=== PATIENT | female | born 1975 | race Caucasian/White ===

== ENCOUNTER → 2017-01-06 | Outpatient (CLI) | payer BC ==
[2017-01-06 10:49] LABS: BASOPHILS # (AUTO) 0.02 10*3/UL; BASOPHILS % (AUTO) 0.3 % (0-1); EOSINOPHILS % (AUTO) 2.9 % (0-8); HEMATOCRIT 43.7 % (37.0-47.0); HEMOGLOBIN 14.8 g/dL (12.0-16.0); IMM GRAN % (AUTO) 0.3 % (0-5); IMM GRAN# (AUTO) 0.02 10*3/UL; LYMPHOCYTES # (AUTO) 1.17 10*3/uL; LYMPHOCYTES % (AUTO) 17.9 % (10-50); MEAN CORPUSCULAR HEMOGLOBIN 32.5 PG (27-31); MEAN CORPUSCULAR HGB CONC 33.9 g/dL (33-37); MEAN PLATELET VOLUME 9.8 FL (7.4-12.2); MONOCYTES # (AUTO) 0.46 10*3/UL (0.3-0.8); NEUTROPHILS # (AUTO) 4.69 10*3/UL; NEUTROPHILS % (AUTO) 71.6 % (50-80); RDW COEFFICIENT OF VARIATION 12.1 % (11.5-14.5); RED BLOOD COUNT 4.56 10^6/uL (4.20-5.40); WHITE BLOOD COUNT 6.55 10^3/uL (4.8-10.8)
[2017-01-06 11:03] LABS: PLATELET MORPHOLOGY COMMENT NORMAL MORPHOLOGY (NORM)
[2017-01-06 11:05] LABS: PRENATAL QUESTION YES (Y)
[2017-01-06 11:42] LABS: HIV ANTIBODY NEGATIVE (N); HIV-1 P24 ANTIGEN NEGATIVE (N)
[2017-01-07 14:37] LABS: HEP B SURFACE AG Negative (Negative); RUBELLA IGG INDEX 1.8 (()); SYPHILIS IGG WITH REFLEX Negative (Negative)
== END ==
LOC: MOB LAB 09:57
PROVIDERS: ATTEND Family Medicine
DX: Z36 Encounter for antenatal screening of mother (principal)
CPT/HCPCS: 36415; 80081; 86900; 86901; 87088

== ENCOUNTER → 2017-01-08 | Outpatient (CLI) | payer BC ==
--- NOTE | 2017-01-08 16:33 | DI ---
US OB LESS THAN 14 WEEKS, US OB TRANSVAGINAL,01/08/2017 2:48 PM: Clinical History: Established gestational age. Previous Exam: None at this facility. Findings: Multiple transabdominal and transvaginal grayscale and color Doppler sonographic images are obtained through the pelvis, and demonstrate a gestational sac within the uterus. There is a single pole measuring 3 mm from crown to around, and corresponds with an estimated g estational age of 6 weeks zero days. Visualized portions of the placenta are unremarkable. There are no detectable Doppler heart tones. There is a trace amount of fluid within the cervix. Impression: No pole without detectable Doppler heart tones. This could be secondary to demise or to extreme ly early gestational age. Recommend followup with serial hCG levels.
== END ==
LOC: US 14:37
PROVIDERS: ATTEND Family Medicine
DX: Z36 Encounter for antenatal screening of mother (principal)
CPT/HCPCS: 36415; 76801; 76817; 84702

== ENCOUNTER → 2017-01-10 | Outpatient (CLI) | payer BC | LOC: LAB 13:01 | PROVIDERS: ATTEND Family Medicine | DX: N91.2 Amenorrhea, unspecified (principal); Z32.01 Encounter for pregnancy test, result positive | CPT/HCPCS: 36415; 84702 ==

== ENCOUNTER → 2017-01-17 | Outpatient (CLI) | payer BC | LOC: LAB 15:21 | PROVIDERS: ATTEND Family Medicine | DX: O03.9 Complete or unspecified spontaneous abortion without complication (principal) | CPT/HCPCS: 36415; 84702 ==

== ENCOUNTER → 2017-02-03 | Outpatient (CLI) | payer BC ==
[2017-02-03 10:48] LABS: BILIRUBIN,URINE NEGATIVE (NEG); CLARITY,URINE CLEAR (CLEAR); GLUCOSE, URINE (UA) NEGATIVE (NEG); LEUKOCYTE ESTERASE ,URINE NEGATIVE (NEG); NITRATE,URINE NEGATIVE (NEG); OCCULT BLOOD,URINE Trace-lysed (NEG); PROTEIN,URINE NEGATIVE (NEG); UROBILINOGEN,URINE 0.2 mg/dL (0.2)
[2017-02-03 11:03] LABS: URINE SAMPLE TYPE VOIDED SPECIMEN
[2017-02-03 11:04] LABS: SQUAMOUS EPITHELIAL CELL,UR RARE
== END ==
LOC: MOB LAB 09:38
PROVIDERS: ATTEND Family Medicine
DX: O03.9 Complete or unspecified spontaneous abortion without complication (principal); R30.0 Dysuria
CPT/HCPCS: 36415; 81001; 84702

== ENCOUNTER → 2017-02-06 | Outpatient (CLI) | payer BC ==
--- NOTE | 2017-02-06 10:02 | DI ---
PELVIC ULTRASOUND, 02/06/2017 7:54 AM Clinical History: Retained placenta/products of conception. The patient had a recent miscarriage on . Previous Exam: None at this facility. Technique: Transabdominal and transvaginal scans are performed. The uterus measures 40 x 55 x 90 mm. The central uterine stripe is thickened and measures 20 mm. With the transvaginal probe, the uterine cavity in the fundal region is inhomogeneous in texture. There a re areas were the tissues markedly hypoechoic and there are areas where there is intermediate echogen icity. Some of this material may represent clotted blood, but solid material such as retained product s of conception cannot be excluded. In the anterior wall of the body of the uterus is a 15 mm inhomog eneous and hypoechoic lesion consistent with a small fibroid. The right ovary has a 20-25 mm cyst and there are 2 small cysts in the range of 10 mm in the left ovary. Both adnexal regions are normal. Th ere are no fluid collections or masses. Readin. The endometrial stripe of the uterus is thickened and measures 20 mm. Within the uterine cavity i n the fundal region, there are areas of increased and decreased echogenicity. Some of this may repres ent blood clots, but retained products of conception cannot entirely be excluded. 2. There is a small hypoechoic 15 mm lesion in the anterior wall of the uterus consistent with a fib roid. There are small cysts of both ovaries. The ovaries are otherwise unremarkable.
== END ==
LOC: US 07:45
PROVIDERS: ATTEND Nurse Practitioner Family
DX: O73.0 Retained placenta without hemorrhage (principal)
CPT/HCPCS: 76830; 76856

== ENCOUNTER → 2017-02-27 | Outpatient (CLI) | payer BC | LOC: LAB 06:59 | PROVIDERS: ATTEND Family Medicine | DX: O03.9 Complete or unspecified spontaneous abortion without complication (principal) | CPT/HCPCS: 36415; 84702 ==

== ENCOUNTER → 2017-07-09 | Outpatient (CLI) | payer BC | LOC: LAB 14:49 | PROVIDERS: ATTEND Family Medicine | DX: N91.2 Amenorrhea, unspecified (principal); Z87.59 Personal history of other complications of pregnancy, childbirth and the puerperium | CPT/HCPCS: 36415; 84702 ==

== ENCOUNTER → 2017-07-11 | Outpatient (CLI) | payer BC | LOC: LAB 12:16 | PROVIDERS: ATTEND Family Medicine | DX: N91.2 Amenorrhea, unspecified (principal) | CPT/HCPCS: 36415; 84702 ==

== ENCOUNTER → 2017-07-18 | Outpatient (CLI) | payer BC | LOC: LAB 11:20 | PROVIDERS: ATTEND Family Medicine | DX: Z87.59 Personal history of other complications of pregnancy, childbirth and the puerperium (principal) | CPT/HCPCS: 36415; 84702 ==

== ENCOUNTER 2018-03-17 10:52 | Inpatient (IN) ==
[2018-03-17 11:55] LABS: Hemoglobin [HGB] 13.2 g/dL (12.0-16.0); MEAN CORPUSCULAR HEMOGLOBIN 32.3 PG (27-31); MEAN CORPUSCULAR HGB CONC 33.8 g/dL (33-37); MEAN CORPUSCULAR VOLUME 95.4 FL (81-99); MEAN PLATELET VOLUME 10.5 FL (7.4-12.2); RED BLOOD COUNT 4.09 10^6/uL (4.20-5.40)
[2018-03-17] MEDS ORDERED: Oxytocin 20 Units + LR 20 UNIT/1,000 ML BAG IV SCH ×2 (12:00→15:33)
[2018-03-17] MEDS ORDERED: Metoclopramide Inj 10 MG/2 ML VIAL IV ONE (12:00)
[2018-03-17] MEDS ORDERED: Lactated Ringers 1,000 ML PRIMARY IV SCH (12:00)
[2018-03-17] MEDS ORDERED: CefOXitin Inj 2 GM in Sodium Chloride 0.9% 100 ML IV ONE (12:00)
[2018-03-17] MEDS ORDERED: NORMAL SALINE 10 ML SYRINGE FLUSH IVP PRN (12:00)
[2018-03-17] MEDS ORDERED: LIDOCAINE W/ SODIUM BICARB 0.5 ML SYR SUBD PRN (12:00)
[2018-03-17] MEDS ORDERED: CITRIC ACID/SODIUM CITRATE 30 ML CUP PO ONE (12:00)
[2018-03-17] MEDS ORDERED: Famotidine Inj 20 MG in Normal Saline Flush 10 ML IVP ONE (12:00)
[2018-03-17] MEDS ORDERED: Lactated Ringers 1,000 ML PRIMARY IV ONE ×3 (12:00→13:20)
[2018-03-17] MEDS ORDERED: LIDOCAINE HCL 2 % 10 ML JELLY URO-JECT TOPICAL PRN (12:00)
[2018-03-17] MEDS ORDERED: ePHEDrine Inj 50 MG/ML AMP ONE (12:42)
[2018-03-17] MEDS ORDERED: OXYTOCIN 10 UNIT/1 ML ONE ×2 (12:42→13:58)
[2018-03-17] MEDS ORDERED: Sodium Chloride 0.9% vial 10 ML ONE (13:16)
[2018-03-17] MEDS ORDERED: PHENYLEPHRINE 10,000 MCG/1 ML VIAL ONE (13:16)
[2018-03-17] MEDS ORDERED: METHYLERGONOVINE MALEATE 0.2 MG/1 ML VIAL IM ONE ×2 (13:33→15:33)
[2018-03-17] MEDS ORDERED: Misoprostol Tab 100 MCG TAB ONE (13:42)
[2018-03-17] MEDS ORDERED: Lactated Ringers 2,000 ML PRIMARY IV ONE (13:57)
[2018-03-17] MEDS ORDERED: Misoprostol Tab 100 MCG TAB RECTAL ONE (14:49)
[2018-03-17] MEDS ORDERED: HYDROmorphone 2 MG/1 ML IV PRN (15:33)
[2018-03-17] MEDS ORDERED: LANOLIN HPA 40 GM TUBE TOPICAL PRN (15:33)
[2018-03-17] MEDS ORDERED: DIPH,PERTUSS,TET(ADACEL) VAC/PF 0.5 ML (Tdap) IM ONE (15:33)
[2018-03-17] MEDS ORDERED: Naloxone Inj 0.01 MG, Sodium Chloride 0.9% vial 1 ML IVP PRN ×2 (15:33)
[2018-03-17] MEDS ORDERED: CALCIUM CARBONATE 500 MG (TUMS) CHEWABLE TABLET PO PRN (15:33)
[2018-03-17] MEDS ORDERED: MISOPROSTOL 200 MCG TABLET RECTAL ONE (15:33)
[2018-03-17] MEDS ORDERED: ONDANSETRON 4 MG/2 ML VIAL IVP PRN (15:33)
[2018-03-17] MEDS ORDERED: diphenhydrAMINE 50 MG/1 ML VIAL IV PRN (15:33)
[2018-03-17] MEDS ORDERED: diphenhydrAMINE 25 MG CAPSULE PO PRN (15:33)
[2018-03-17] MEDS ORDERED: Famotidine Inj 20 MG in Normal Saline Flush 10 ML IVP PRN (15:33)
[2018-03-17] MEDS ORDERED: Nalbuphine Inj 20 MG/ML Ampule IVP PRN (15:33)
--- NOTE | 2018-03-17 15:34 | CRNA.PROGR ---
Anesthesia Recovery Phase I - Post Anesthesia Evaluation Patient's Condition on Arrival in Phase I: Stable Pain Level: 0
--- NOTE | 2018-03-17 15:36 | CRNA.PROCE ---
Central Neuraxis Block Placemt - - Safety Measures: Time Out Taken, Site Verified - - Type of Block: Subarachnoid Reason for Block: Surgical Moniters Used During Block: EKG, SPO2, NIBP Positioning: Sitting Skin Prep Used: Betadine Draped: Yes Skin Infiltration - Enter Amount Used in Comment Field: 1% Xylocaine (mL): Yes ( wheal) Introducer User: 18 Gauge Keenan Local Anesthetic - Enter Amount Used in Comment Field: 5.0 % Xylocaine with Dextrose (ml): Yes (5ml test neg) Number of Centimeters Catheter Threaded: 4 Bioclusive Dressing Applied: Yes Anesthesia Time - Other Weight: 121.109 kg Height: 5 ft 6 in Body Mass Index (BMI): 43.0
--- NOTE | 2018-03-17 15:37 | CRNA.PROGR ---
Anesthesia Time - - Start date: 03/17/18 End date: 03/17/18 - Procedure/Recovery Time Anesthesia : Time In: 13:04 Anesthesia : Time Out: 14:43 Anesthesia : Total Time: 99 - Total Anesthesia Time Total Anesthesia Time (minutes): 99 - Other Weight: 121.109 kg Height: 5 ft 6 in Body Mass Index (BMI): 43.0 Physical Status: P2 Anesthesia Type: Spinal Block Obstetrics: C/S anesthesia only
--- NOTE | 2018-03-17 15:40 | CRNA.PROGR ---
Anesthesia Note - Progress Notes Anesthesia Progress Note: Addendum to SAB block note. Typo noted. Correction. Lidocaine 5% not given. SAB was 15mg 0.75% Marcaine with dex.
[2018-03-17] MEDS: KETOROLAC 15 MG/1 ML VIAL IVP SCH ×2 (16:45→22:52)
[2018-03-17] MEDS: oxyCODONE-ACETAMINOPHEN 5-325 TAB PO PRN ×2 (16:49→21:05)
[2018-03-17] MEDS: D5-LR 1,000 ML PRIMARY IV SCH (17:15)
[2018-03-18] MEDS: oxyCODONE-ACETAMINOPHEN 5-325 TAB PO PRN ×5 (01:44→19:43)
[2018-03-18 05:39] LABS: Hematocrit [HCT] 32.6 % (37.0-47.0); Hemoglobin [HGB] 10.5 g/dL (12.0-16.0); MEAN CORPUSCULAR HEMOGLOBIN 31.4 PG (27-31); MEAN CORPUSCULAR HGB CONC 32.2 g/dL (33-37); MEAN CORPUSCULAR VOLUME 97.6 FL (81-99); MEAN PLATELET VOLUME 10.3 FL (7.4-12.2); RED BLOOD COUNT 3.34 10^6/uL (4.20-5.40)
[2018-03-18] MEDS: D5-LR 1,000 ML PRIMARY IV SCH (06:56)
[2018-03-18] MEDS: KETOROLAC 15 MG/1 ML VIAL IVP SCH ×3 (07:29→19:44)
[2018-03-18] MEDS: NORMAL SALINE 10 ML SYRINGE FLUSH IVP PRN ×3 (07:29→19:44)
--- NOTE | 2018-03-18 08:56 | OB.OP.NOTE ---
Operative Report - - Surgeon: Jesse Steve MD Architectural Draftsman: Niall Blackwell MD Anesthesia Type: Regional Anesthesia Provider: Lopez Almanza CRNA Surgery Date: 03/17/18 Preoperative Diagnosis: Primary section, advanced maternal age Postoperative Diagnosis: same, delivered. Procedure: Primary section Complications: none Estimated Blood Loss (mL): 1,000 Urine Output (mL): 250 Fluids: 1500 cc LR Indications: Pt is a 42 yo G2 now P1 at 40 weeks gestation who has been followed closely for her . She has had no signs of labor. She was given the option of a primary section and readily agreed to this delivery route given her age. Findings: male infant, cephalic presentation, clear amniotic fluid. Description of Procedure: The patient was taken to the operating room where spinal anesthesia was found to be adequate. She was then prepared and draped in the normal sterile fashion in the dorsal supine position with a leftward tilt. A Pfannenstiel skin incision was then made with the scalpel and carried through to the underlying layer of fascia with Bovie. The fascia was incised in the midline and the incision extended laterally with the Bovie. The superior aspect of the fascial incision was then grasped with Matt clamps, elevated, and the underlying rectus muscles dissected off bluntly. Attention was then turned to the inferior aspect of this incision which, in a similar fashion, was grasped with Matt clamps and the rectus muscles dissected off both bluntly and with the Bovie. The rectus muscles were then in the midline, and the peritoneum identified, tented up, and entered in a blunt fashion. The peritoneal incision was then extended superiorly and inferiorly with good visualization of the bladder. The Piero retractor was then inserted and the vesicouterine peritoneum was identified. The lower uterine segment was incised in a transverse fashion with the scalpel. The uterine incision was then extended laterally in a blunt fashion. The 's head was delivered atraumatically. The nose and mouth were suctioned with the bulb suction and the cord clamped and cut. The was handed off to the awaiting nurse. Cord gases and cord blood were sent for analysis. The placenta was then removed manually; the uterus exteriorized, and cleared of all clots and debris. The uterine incision was repaired with 0 Vicryl in a running, locked fashion. A second layer of the same suture was used to obtain excellent hemostasis. The peritoneal cavity was then copiously irrigated with warm saline. The uterus was returned to the abdomen. The paracolic gutters were copiously irrigated with warm saline and a second look at the uterine incision continued to reveal excellent hemostasis. The peritoneum was closed with 3-0 Vicryl. The fascia was reapproximated with 0 vicryl in a running fashion. The subcutaneous space was irrigated with copiously with warm saline and then closed first with 3-0 Vicryl and then more superficially with Insorb absorbable sutures. The skin was reapproximated with Steri-Strips and a Silverlon dressing was applied. Fundal massage was completed with no clots in vaginal vault. The patient tolerated the procedure well. Sponge, lap, and needle counts were correct x2. Ancef was given preoperatively less than one hour prior to incision time. The patient was taken to the recovery room in stable condition. Patient Problems - Patient Problem List (1) Advanced maternal age (AMA), 40 years or greater Status: Acute Category: Medical (2) Status post primary low transverse section Status: Acute Code(s): Z98.891 - History of uterine scar from previous surgery Category: Medical
[2018-03-18] MEDS: Senna/Docusate Tab 1 TAB TAB PO SCH ×2 (09:49→20:10)
[2018-03-18] MEDS: Prenatal Multivitamin Tab 1 TAB TAB PO SCH (09:49)
--- NOTE | 2018-03-18 10:19 | CRNA.PROGR ---
Anesthesia Note - Progress Notes Anesthesia Progress Note: Post Anesthesia Note Pt is up and dressed, has been up to the restroom, and ambulating. She did state that the SAB did not completely resolve until 200 last night. She denies any residual effects of SAB today. She is able to tolerate a regular diet, pain is well under control. Current VS are stable. Vital Signs (Last 8 hours) Temp Pulse Pulse Resp BP Pulse Ox 03/18/18 07:40 84 84 03/18/18 05:08 97 03/18/18 04:50 98.1 F 76 16 114/53
[2018-03-18] MEDS: HEPARIN 5000 UNIT/1 ML SUBCUT SCH (16:24)
[2018-03-19] MEDS: IBUPROFEN 800 MG TABLET PO PRN ×2 (05:21→12:56)
[2018-03-19] MEDS: HEPARIN 5000 UNIT/1 ML SUBCUT SCH ×3 (08:51→15:13)
[2018-03-19] MEDS: oxyCODONE-ACETAMINOPHEN 5-325 TAB PO PRN ×2 (08:59→12:56)
[2018-03-19] MEDS: Senna/Docusate Tab 1 TAB TAB PO SCH (08:59)
[2018-03-19] MEDS: Prenatal Multivitamin Tab 1 TAB TAB PO SCH (08:59)
[2018-03-19 13:57] VITALS: BP 142/69; RESP 18; TEMP 98.2; O2SAT 95
--- NOTE | 2018-03-21 23:55 | OB.PROGRES ---
Subjective Post Op Day: 1 Pain Management: PO Stark Catheter: No Flatus: Yes Diet: Regular Feeding Method: Formula Feeding Ambulating: Yes Concerns / Additional Information: Moderate lochia. Has mostly decided that she wants to bottle feed. Denies MARTINEZ, RUQ pain. Edema in her legs bilaterally is maybe a little bit worse today. Some burning incisional pain, otherwise, no complaints. Objective - General General Appearance: POSITIVE: No Acute Distress, Cooperative - Cardiovacular Cardiovascular Exam: POSITIVE: RRR, No Murmur Edema: +2 Pedal Edema Extremities: Negative Stew's - Bilaterally - Respiratory Respiratory Exam: POSITIVE: Clear to Auscultation - Bilaterally, Breathing Non Labored - Abdomen Bowel Sounds: Present Abdominal Wound Assessment: Silverlone Dressing - Fundus/Lochia/Perineum Uterus Consistency: Firm Uterus Position: POSITIVE: Below Umbilicus Assesstment / Plan (1) Status post primary low transverse section Status: Acute Assessment / Plan: -routine cares. -rh positive. -rubella immune. -bottle feeding. -remains normotensive. -possible d/c home tomorrow.
--- NOTE | 2018-03-22 | DCSUMMARY ---
Hospitalization Summary Admit Date: 03/17/18 Discharge Date: 03/19/18 Primary Diagnosis:: Advanced maternal age Secondary Diagnosis:: Elective section Primary Surgery and Date: Primary section on 03/17/18 Delivery Type: Hospital Course: Pt was admitted for an elective primary section. She had an uneventful surgery--for details of her operative, please see operative report elsewhere in the chart. / Postop Complications: course was also unremarkable. She remained normotensive. Pain was controlled with percocet and motrin. Baby was bottlefed. On the day of discharge , she was independent in her activities of daily living, pain was well controlled and baby was doing very well. Pt was requesting discharge home. Complications: Pt initially required some bubble CPAP due to aspiration of amniotic fluid at delivery. This was continued for about 2 hours and then stopped. Baby did well without any other complications for the duration of the . Exam - Vitals Vital Signs: Vital Signs Temperature 98.2 F Temperature Source Temporal Artery Scan Pulse Rate [Apical] 84 Pulse Rate [Pulse Oximeter] 90 Pulse Rate 72 Respiratory Rate 18 Blood Pressure [Left Arm] 142/69 Blood Pressure 124/53 Pulse Ox 95 Oxygen Flow Rate RA Oxygen Delivery Method Room Air Height 5 ft 6 in Weight 267 lb - General General Appearance: No Acute Distress, Cooperative - Head Head Exam: Normal Inspection - Neck Neck Exam: Normal Inspection - Respiratory Respiratory Exam: POSITIVE: Clear to Auscultation - Bilaterally, Breathing Non Labored - Cardiovascular Cardiovascular Exam: POSITIVE: RRR, No Murmur - GI/Abdominal GI/Abdominal Exam: POSITIVE: Normal Bowel Sounds, Non Tender, Non Distended, Soft - Extremities Extremities Exam: POSITIVE: +2 Edema - Neurological Neurological Exam: POSITIVE: Alert, Oriented x 3 - Psychiatric Psychiatric Exam: POSITIVE: Normal Affect, Normal Mood - Integumentary Integumentary Exam: POSITIVE: Normal Color, Warm, Dry Patient Problems - Patient Problem List (1) Status post primary low transverse section Status: Acute Code(s): Z98.891 - History of uterine scar from previous surgery Category: Medical
== END 2018-03-19 15:15 | disposition home or self-care (01) | DRG 766 ==
LOC: OBOR 10:52 → OBIP 15:49
PROVIDERS: ADMIT Family Medicine; ATTEND Family Medicine